=== PATIENT | male | born 1985 | race Caucasian/White ===

== ENCOUNTER 2018-03-30 17:05 | Emergency (ER) | payer OTHER ==
[2018-03-30] MEDS: KETOROLAC 30 MG INJ IM (17:51)
[2018-03-30] MEDS ORDERED: ACETAMINOPHEN 325 MG TAB (17:58)
[2018-03-30] MEDS: ACETAMINOPHEN 325 MG TAB PO (18:00)
== END 2018-03-30 18:00 ==
LOC: E/R 17:05
DX: S82.831A Other fracture of upper and lower end of right fibula, initial encounter for closed fracture (principal); S93.04XA Dislocation of right ankle joint, initial encounter; R40.2142 Coma scale, eyes open, spontaneous, at arrival to emergency department; R40.2252 Coma scale, best verbal response, oriented, at arrival to emergency department; R40.2362 Coma scale, best motor response, obeys commands, at arrival to emergency department; Y04.0XXA Assault by unarmed brawl or fight, initial encounter
CPT/HCPCS: 29505; 73610-RT; 99283-25